=== PATIENT | male | born 1990 | race African-American/Black ===

== ENCOUNTER 2024-03-15 11:33 | Emergency (ER) | payer MEDICAID, OTHER ==
[~2024-03-15] VITALS: Ht 167.6 cm; Wt 68.8 kg
[2024-03-15 12:01] VITALS: BP 112/78; PULSE 103; RESP 20; TEMP 99.2; O2SAT 100
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
[2024-03-15] MEDS: KETOROLAC TROMETH 60MG/2ML VIAL IM ONE (12:34)
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
[2024-03-15] MEDS ORDERED: IBUP-1456 PO (13:39)
[2024-03-15] MEDS ORDERED: BACL10TA PO (13:39)
== END 2024-03-15 13:51 | disposition home or self-care (01) ==
LOC: ER 11:33
DX: S33.5XXA Sprain of ligaments of lumbar spine, initial encounter (principal); S00.83XA Contusion of other part of head, initial encounter; S70.211A Abrasion, right hip, initial encounter; M25.532 Pain in left wrist; F17.210 Nicotine dependence, cigarettes, uncomplicated; Z79.1 Long term (current) use of non-steroidal anti-inflammatories (NSAID); Z79.899 Other long term (current) drug therapy; Y04.2XXA Assault by strike against or bumped into by another person, initial encounter; Y93.89 Activity, other specified; Y92.89 Other specified places as the place of occurrence of the external cause; Y99.8 Other external cause status
CPT/HCPCS: 70110; 72100; 73110; 96372; 99284; J1885